=== PATIENT | female | born 1970 | race Caucasian/White ===

== ENCOUNTER 2023-07-03 11:29 | Emergency (ER) | payer MEDICAID ==
[~2023-07-03] VITALS: Ht 170.2 cm; Wt 140.2 kg
[~2023-07-03 11:29] MED LIST: CYCL-1 PO; ESCI10TA45 PO; GABA-338 PO; HYDR-4383 PO; TRAM50TA2 PO; WEL100T PO
[2023-07-03 11:43] VITALS: BP 130/75; PULSE 69; RESP 18; TEMP 97.8; O2SAT 98
[2023-07-03 13:40] LABS: BASOPHILS % (AUTO) 0.5 % (0-1); EOSINOPHILS # (AUTO) 0.2 X10'3 (0-0.9); EOSINOPHILS % (AUTO) 2.9 % (0-6); HEMATOCRIT 43.2 % (35.0-45.0); HEMOGLOBIN 14.3 g/dl (12.0-16.0); LYMPHOCYTES # (AUTO) 2.4 X10'3 (1.1-4.8); LYMPHOCYTES % (AUTO) 36.6 % (21-51); MEAN CORPUSCULAR HEMOGLOBIN 31.4 PG (27.0-31.0); MEAN CORPUSCULAR HGB CONC 33.2 g/dL (33.0-36.5); MEAN CORPUSCULAR VOLUME 94.6 FL (78-98); MEAN PLATELET VOLUME 8.1 FL (7.4-10.4); MONOCYTES # (AUTO) 0.5 X10'3 (0-0.9); MONOCYTES % (AUTO) 7.3 % (2-12); NEUTROPHILS # (AUTO) 3.4 X10'3 (1.8-7.7); NEUTROPHILS % (AUTO) 52.7 % (42-75); PLATELET COUNT 292 X10'3 (140-440); RED BLOOD COUNT 4.57 X10'6 (4.20-5.60); RED CELL DISTRIBUTION WIDTH 12.5 % (11.5-14.5); WHITE BLOOD COUNT 6.5 X10'3 (4.5-11.0)
[2023-07-03 13:43] LABS: BILIRUBIN,URINE NEGATIVE (Neg); CLARITY,URINE SLIGHTLY CLOUDY (Clear); COLOR,URINE YELLOW (Yellow); GLUCOSE, URINE NEGATIVE (Neg); KETONES,URINE NEGATIVE (Neg); LEUKOCYTE ESTERASE ,URINE NEGATIVE (Neg); NITRITES, URINE NEGATIVE (Neg); OCCULT BLOOD,URINE NEGATIVE (Neg); PH,URINE 5.5 (4.8-8.0); PROTEIN,URINE NEGATIVE (Neg); UROBILINOGEN,URINE 0.2 E.U/dL (0.2-1.0)
[2023-07-03 13:44] LABS: UA COLLECTION TYPE CLN CATCH MIDSTREAM
[2023-07-03 13:49] LABS: BACTERIA,URINE FEW /HPF (Neg); RBC,URINE NONE SEEN /HPF (0-2); WBC,URINE 0-4 /HPF (0-4)
[2023-07-03 13:50] LABS: MUCUS STRANDS FEW /LPF (Neg); SQUAMOUS EPITHELIAL CELL,UR MANY /LPF (FEW)
[2023-07-03 13:54] LABS: ALANINE AMINOTRANSFERASE 54 U/L (12-78); ALBUMIN 3.9 G/DL (3.4-5.0); ALBUMIN/GLOBULIN RATIO 1.1 (1.1-1.5); ALKALINE PHOSPHATASE 96 IU/L (46-116); ANION GAP 9 (8-16); BILIRUBIN,TOTAL 0.5 MG/DL (0.1-1.0); BLOOD UREA NITROGEN 17 MG/DL (7-18); BUN/CREATININE RATIO 20.7 (10.0-20.0); CALCIUM 9.2 MG/DL (8.5-10.1); CHLORIDE 106 MMOL/L (99-107); CREATININE 0.82 MG/DL (0.40-0.90); GLUCOSE 92 MG/DL (70-104); SODIUM 140 MMOL/L (135-145); TOTAL CARBON DIOXIDE 24.6 MMOL/L (24-32); TOTAL PROTEIN 7.6 G/DL (6.4-8.2); eCRCL 80 ML/MIN; eGFR 74 ML/MIN
[2023-07-03 14:15] LABS: ASPARTATE AMINO TRANSFERASE 35 U/L (10-37); POTASSIUM 4.6 MMOL/L (3.5-5.1)
== END 2023-07-03 17:54 | disposition home or self-care (01) ==
LOC: ER 11:30
DX: N81.10 Cystocele, unspecified (principal); Z98.890 Other specified postprocedural states; Z90.710 Acquired absence of both cervix and uterus; Z79.899 Other long term (current) drug therapy; Z79.2 Long term (current) use of antibiotics
CPT/HCPCS: 36415; 80053; 81001; 85025; 99283; 99284

== ENCOUNTER 2023-07-11 12:15 | Outpatient (CLI) | payer MEDICAID | END 2023-07-11 23:59 | disposition home or self-care (01) | LOC: RAD 12:15 | PROVIDERS: ATTEND Family Medicine | DX: R76.11 Nonspecific reaction to tuberculin skin test without active tuberculosis (principal) | CPT/HCPCS: 71046 ==

== ENCOUNTER 2024-12-01 13:56 | Emergency (ER) | payer MEDICAID ==
[~2024-12-01] VITALS: Ht 172.7 cm; Wt 90.9 kg
[2024-12-01 13:58] VITALS: BP 121/91; PULSE 100; RESP 16; TEMP 98.5; O2SAT 99
[2024-12-01] MEDS: ondansetron 4mg rapidly disintigrating tab PO ONE (15:50)
[2024-12-01] MEDS: sulfamethoxazole/trimethoprim DS (800/160mg) tablet PO STA (15:56)
[2024-12-01] MEDS: ondansetron 4mg rapidly disintigrating tab PO STA (15:56)
[2024-12-01] MEDS: bacitracin 15gm ointment TP STA (15:56)
[2024-12-01] MEDS ORDERED: SULF1TAB49 PO (15:59)
[2024-12-01] MEDS ORDERED: ONDA-243 PO (15:59)
--- NOTE | 2024-12-01 16:00 | Physician Documentation ---
History of Present Illness ~ Chief Complaint: Leg Pain Stated Complaint: RASH Time Seen by MD: 15:11 Primary Medical Doctor: none HPI Patient is seen today with complaints of pain and redness and swelling and open sores of her right lower extremity with a red streak going up her right inner thigh. Patient states she feels sick and is concerned about the infection. States the sores started as mosquito bites that she scratched. Patient has no other concern or complaint at this time. She denies any chest pain or shortness of breath or abdominal pain or nausea, vomiting, diarrhea. Tetanus witin 5 years: Yes Medication Reconciliation Allergies: Coded Allergies: No Known Allergies (Unverified , 12/01/24) Scheduled Bupropion Hcl* (Wellbutrin*), 150 MG PO BID, (Reported) Cyclobenzaprine* (Cyclobenzaprine*), 10 MG PO HS Cyclobenzaprine* (Cyclobenzaprine*), 1 TAB PO TID Escitalopram Oxalate* (Lexapro*), 10 MG PO DAILY, (Reported) Gabapentin* (Gabapentin*), 600 MG PO TID, (Reported) Tramadol HCl (Tramadol HCl), 50 MG PO Q6H Scheduled PRN Cyclobenzaprine* (Cyclobenzaprine*), 1 TABLET PO Q8H PRN for muscle spasms Hydrocodone/Acetaminophen ([place] 5-325 Tablet), 1 TABLET PO TID PRN for pain Past Medical History Past Medical History: Hernia, Chronic Back Pain Past Surgical History: , hysterectomy Other Past Surgical History: hernia repair 12/06 Alcohol Use: None Drug Use: none Lives In: Home Occupation: other Review of Systems Constitutional: Denies: chills, fever, weakness Eyes: Denies: pain, blurred vision ENT: Denies: ear pain, nose pain, throat pain, mouth pain Respiratory: Denies: cough, shortness of breath Cardiovascular: Denies: chest pain, palpitations Gastrointestinal: Denies: abdominal pain, nausea, vomiting Genitourinary: Denies: burning, dysuria Female Genitalia: Denies: vaginal discharge, pelvic pain Neurological: Denies: headache, dizziness Musculoskeletal: Denies: pain, swelling Integumentary: Denies: rash, lesions Allergic/Immunologic: Denies: hives, itching Hematologic/Lymphatic: Denies: no symptoms reported Psychiatric: Denies: depression, anxiety Physical Exam Vital Signs: Temperature: 98.5, Source: Temporal, Heart Rate: 100, Respiratory Rate: 16, BP: 121/91, Pulse Oximetry: 99, Weight: 90.910 Oxygen Flow Rate: 0 Physical Exam General: Awake and Alert, no acute distress. HEENT: Conjunctiva pink, Sclera clear, Mucus Membranes moist. Neck: Supple without masses and tenderness. Resp: Unlabored. Lungs clear to auscultation bilaterally. Heart: Regular Rate and rhythm, normal S1 and S2 without murmur, rub or gallop. Extremities: No cyanosis,clubbing or edema. Skin: Patient on exam has multiple open sores that have scabbed over of her right lower extremity and fever on the left lower extremity. Patient has erythema and nonblanching erythema with some swelling noted and gin hypertrophy of the right lower extremity. Patient also has erythematous streaking extending proximally up the right inner thigh with tenderness to palpation. Progress Results/Orders Results/Orders Orders - NNEKA PAGAN PAC Ondansetron Disint. Tablet (Zofran Odt T (12/01/24 15:39) Sulfamethox/Trimetho. Ds Tab (Septra Ds (12/01/24 15:39) Vital Signs 12/01/24 13:58 Temp 98.5 Pulse 100 Resp 16 B/P (MAP) 121/91 Pulse Ox 99 O2 Flow Rate 0 Medical Decision Making Findings Patient is seen today with complaints of pain and redness and swelling and open sores of her right lower extremity with a red streak going up her right inner thigh. Patient states she feels sick and is concerned about the infection. States the sores started as mosquito bites that she scratched. Patient has no other concern or complaint at this time. She denies any chest pain or shortness of breath or abdominal pain or vomiting, diarrhea. Patient does admit to some nausea for the last couple of days and states she has not really had any thing or much to eat over the last couple of days. She states she is very thirsty. Patient was given Zofran 8 mg ODT, food and drink along with Bactrim DS tablet in the ED today. Patient was sent prescriptions for Bactrim and Zofran to her pharmacy to be taken as prescribed. Patient will follow up with primary care in 3-5 days if no better as needed sooner. Return to ED with any worsening, concerning or changing symptoms. Departure Disposition: HOME / SELF CARE / HOMELESS Impression: Primary Impression: Cellulitis Qualified Codes: L03.115 - Cellulitis of right lower limb Condition: Stable Discharge Instructions: Cellulitis, Adult Additional Instructions: Patient was given Zofran 8 mg ODT, food and drink along with Bactrim DS tablet in the ED today. Patient was sent prescriptions for Bactrim and Zofran to her pharmacy to be taken as prescribed. Patient will follow up with primary care in 3-5 days if no better as needed sooner. Return to ED with any worsening, conc erning or changing symptoms. Referrals: NO PRIMARY CARE PROVIDER (PCP) Prescriptions ONDANSETRON ODT 4mg tablet (ONDANSETRON ODT) 4 Mg Tab.rapdis 4 MG PO BID for 7 Days, #14 TAB Prov: NNEKA PAGAN 12/01/24 Sulfamethoxazole/Trimethoprim (Bactrim Ds Tablet) 800 Mg-160 Mg Tablet 1 TAB PO Q12H for 10 Days, #20 TAB Prov: NNEKA PAGAN 12/01/24 Signature Scribe Signature: No scribe Attestation: No scribe NNEKA PAGAN Dec 01, 2024 15:59
== END 2024-12-01 17:06 | disposition home or self-care (01) ==
LOC: ER 13:57
DX: L03.115 Cellulitis of right lower limb (principal); Z90.710 Acquired absence of both cervix and uterus; Z98.890 Other specified postprocedural states
CPT/HCPCS: 99284

== ENCOUNTER 2025-01-24 10:42 | Emergency (ER) | payer MEDICAID ==
[~2025-01-24] VITALS: Ht 170.2 cm; Wt 107.0 kg
[~2025-01-24 10:42] MED LIST changes: +ONDA-243 PO
[2025-01-24 10:44] VITALS: BP 122/90; PULSE 85; RESP 18; TEMP 97.5; O2SAT 93
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
== END 2025-01-24 11:42 | disposition home or self-care (01) ==
LOC: ER 10:42
DX: M54.2 Cervicalgia (principal); G89.29 Other chronic pain; Z98.890 Other specified postprocedural states; Z90.710 Acquired absence of both cervix and uterus; Z79.899 Other long term (current) drug therapy
CPT/HCPCS: 99282